=== PATIENT | male | born 1995 | race Caucasian/White ===

== ENCOUNTER 2022-05-20 14:11 | Emergency (ER) | payer OTHER, SELFPAY ==
--- NOTE | ~2022-05-20 | XR_ITS ---
EXAMINATION: XR ankle LT min 3V DATE: 05/20/2022 14:42 INDICATION: Left ankle inversion injury. Medial left ankle pain. TECHNIQUE: 4 views of left ankle were obtained. COMPARISON: None. FINDINGS: Bone alignment is normal. No fracture. There is mild osteoarthritis of talonavicular joint. There is ankle soft tissue swelling. IMPRESSION: 1. No fracture. Reviewed, dictated and finalized at location A. ALING OPERATOR IMPRESSION: 1. No fracture.
--- NOTE | 2022-05-20 14:14 | ED.LOWEXIN ---
HPI - Extremity Injury (Lower) General Chief Complaint: Extremity Injury, Lower Stated Complaint: Left ankle twisted Time Seen by Provider: 05/20/22 14:14 Source: patient and RN notes reviewed History of Present Illness HPI Narrative: patient is a 27-year-old male who presents to urgent care with complaints of left ankle pain. Patient states he was playing basketball last night and came down, rolling his ankle while stepping on another player. Patient has ice the injury, elevated and use Tylenol/ ibuprofen. No other acute complaints or injuries. No acute distress noted. Patient aware of the plan of care. Some parts of this dictation were generated by voice recognition software and may contain typographical and/or grammatical inaccuracies. Related Data Home Medications Medication Instructions Recorded Confirmed No Home Medications 05/20/22 05/20/22 Allergies Allergy/AdvReac Type Severity Reaction Status Date / Time Penicillins Allergy Hives Verified 05/20/22 14:30 Review of Systems Review of Systems: CONSTITUTIONAL: Denies fever, chills, or sweats. EYES: Denies visual changes, redness, or discharge. ENT: Denies rhinorrhea, congestion, sore throat, or otalgia. CARDIOVASCULAR: Denies chest pain, palpitations, or edema. RESPIRATORY: Denies cough or dyspnea. GASTROINTESTINAL: Denies abdominal pain, nausea, vomiting, or diarrhea. GENITOURINARY: Denies dysuria or hematuria. SKIN: Denies rash or itching. MUSCULOSKELETAL: Reports of left ankle pain and swelling NEUROLOGIC: Denies headache, numbness, or weakness. All other systems reviewed are negative, except as documented in HPI. PMFSH Comments At the time of my signature, I reviewed and agree with the nursing past medical, surgical, social, and family history. There is no relevant family history pertinent to the patient complaint. Exam Narrative: GENERAL: This is a well-nourished, well-developed patient, in no apparent distress. HEAD: normocephalic, atraumatic. EYES: PERRL. Sclera clear/white. Vision is grossly intact. EARS: External ears normal NOSE: External nose normal with no obvious nasal discharge, nares without redness, no rhinorrhea. THROAT: Mucous membranes moist NECK: Neck supple SKIN: warm, intact with no suspicious lesions or rash, good texture and turgor. NEURO: awake, alert, and oriented to person, place and time. There were no obvious focal neurologic abnormalities. EXTREMITIES: Moderate edema to the medial aspect of the left malleolus with mild to moderate tenderness. Range of motion not tested due to pain and swelling. Positive strong left pedal pulse with capillary refill less than 2 seconds. Course Course Level of Care: Express Care Visit Vital Signs Vital signs: Vital Signs Temperature 97.5 F L 05/20/22 14:21 Pulse Rate 63 05/20/22 14:21 Respiratory Rate 14 05/20/22 14:21 Blood Pressure 151/71 H 05/20/22 14:21 Pulse Oximetry 100 05/20/22 14:21 Oxygen Delivery Room Air 05/20/22 14:21 Temperature 97.5 F L 05/20/22 14:31 Pulse Rate 63 05/20/22 14:31 Respiratory Rate 14 05/20/22 14:31 Blood Pressure 151/71 H 05/20/22 14:31 Pulse Oximetry 100 05/20/22 14:31 Oxygen Delivery Room Air 05/20/22 14:31 reviewed- Patient is informed that they may have pre-hypertension or hypertension based on a blood pressure reading in the department. I recommend the patient call the primary care provider listed on their discharge instructions or a physician of their choice this week to arrange follow-up for further evaluation of possible pre-hypertension or hypertension. MDM - Extremity Injury (Lower) MDM Narrative Medical decision making narrative: reviewed x-ray results with the patient. He is aware that x-ray was negative for fracture or deformity. Advised patient to wear an David wrap for support of bandage over the area for comfort and support. Avoid any strenuous activity for the next 3-5 days. Wear supp
[2022-05-20 14:21] VITALS: BP 151/71; PULSE 63; RESP 14; TEMP 36.4; O2SAT 100
[2022-05-20 14:31] VITALS: BP 151/71; PULSE 63; RESP 14; TEMP 36.4; O2SAT 100
--- NOTE | 2022-05-20 14:41 | PC.NURSE ---
PT TAKEN TO RADIOLOGY IN WHEELCHAIR. PT DECLINED ICE FOR COMFORT
== END 2022-05-20 15:00 | disposition home or self-care (01) ==
PROVIDERS: Emergency Provider Nurse Practitioner Family
DX: S93.402A Sprain of unspecified ligament of left ankle, initial encounter (principal); S96.912A Strain of unspecified muscle and tendon at ankle and foot level, left foot, initial encounter; X50.9XXA Other and unspecified overexertion or strenuous movements or postures, initial encounter; Y93.67 Activity, basketball
CPT/HCPCS: 73610; 99213; G0463